=== PATIENT | male | born 1985 ===

== ENCOUNTER 2018-07-28 14:11 | Inpatient (IN) | payer MEDICAID ==
[~2018-07-28] VITALS: Ht 182.9 cm; Wt 65.1 kg
[2018-07-28] VITALS (12 sets, daily range): BP systolic 95–120; BP diastolic 53–85; BMI 19.0
--- NOTE | ~2018-07-28 | MORECARE ---
CASE MANAGEMENT DISCHARGE SUMMARY PATIENT: HANK ERICKSON UNIT: [id number] ADM DATE: 07/28/18 AGE: 32 : [birth year] SEX: M ROOM/BED: D.2133 AUTHOR: HARITHA ORTEGA PHYSICIAN: REFERRING PHYSICIAN: TATIANA NAM MD DATE OF SERVICE: 07/31/18 Discharge Plan Patient Name: HANK ERICKSON Facility: [facility]:[place] : 1985 Planned Disposition: Home Anticipated Discharge Date: 07/31/18 Discharge Date: 07/31/2018 Expected LOS: 3 Initial Reviewer: [email or web address] Initial Review Date: 07/28/2018 Generated: 07/31/18 9:05 pm Comments DCP- Discharge Planning Updated by [email or web address]: Tara Haji on 07/31/18 7:[address] PRIMARY NURSE REQUEST ASSISTANCE WITH TRANSPORTATION. PATIENT STATES HE IS GOING TO HOME AT [address] [place] [address], IN [place], [place]. HAS NO MONEY AND NO ONE HE CAN CALL TO PICK HIM UP. CANNOT RETURN TO PREVIOUS ADDRESS. TAXI APPROVED -QUOTED COST $230.00 [place] [employer]. Patient Name: HANK ERICKSON Page [id number] at 2005 All edits/amendments must be made on the electronic document DICTATION DATE: 07/31/182003 SUPERVISOR ASSEMBLING: KAVON 07/31/182003 RPT#: [id number] DC DATE:07/31/18 STATUS: DIS IN [address] [address] END OF REPORT
--- NOTE | ~2018-07-28 | MORECARE ---
CASE MANAGEMENT DISCHARGE SUMMARY PATIENT: HANK ERICKSON UNIT: [id number] ADM DATE: 07/28/18 AGE: 32 : 86 SEX: M ROOM/BED: D.2133 AUTHOR: HARITHA ORTEGA PHYSICIAN: REFERRING PHYSICIAN: TATIANA NAM MD DATE OF SERVICE: 08/02/18 Discharge Plan Patient Name: HANK ERICKSON [facility] [facility] 1985 Planned Disposition: Home Anticipated Discharge Date: 07/31/18 Discharge Date: 07/31/2018 Expected LOS: 3 Initial Reviewer: [email or web address] Initial Review Date: 07/28/2018 Generated: 08/02/18 1:19 pm Comments DCP- Discharge Planning Updated by [email or web address]: Tara Haji on 07/31/18 7:[address] PRIMARY NURSE REQUEST ASSISTANCE WITH TRANSPORTATION. PATIENT STATES HE IS GOING TO HOME AT [address] [place] [address], IN [place], [place]. HAS NO MONEY AND NO ONE HE CAN CALL TO PICK HIM UP. CANNOT RETURN TO PREVIOUS ADDRESS. TAXI APPROVED -QUOTED COST $230.00 [employer]. Last DP export: 07/31/18 7:05 Patient Name: HANK ERICKSON Page [id number] at 1219 All edits/amendments must be made on the electronic document DICTATION DATE: 08/02/18 1218 ACCOUNTANT CERTIFIED PUBLIC: KAVON 08/02/18 1218 RPT#: [id number] DC DATE:07/31/18 STATUS: DIS IN [facility] [address] [place] [address] END OF REPORT
--- NOTE | ~2018-07-28 | CN ---
PATIENT NAME:HANK ERICKSON MEDICAL RECORD: [id number] : 87 LOCATION:[facility] D.2133 ADMIT DATE: 07/28/18 ACCOUNT: [id number] CONSULTING PHYSICIAN: KACI VELEZ MD REFERRING PHYSICIAN: TATIANA NAM MD DATE OF CONSULTATION: 07/30/2018 PSYCHIATRIC CONSULTATION IDENTIFYING DATA: The patient is 32 years old and he is admitted to the hospital on a voluntary basis. CHIEF COMPLAINT: Aggression. HISTORY OF PRESENT ILLNESS: The patient is a known polysubstance abuser who is addicted to opiates. He was at a treatment program recently and is therefore the Suboxone prescription. While in counseling, he apparently became acutely aggressive and violent. He was brought to the Emergency Room here. He has continued to be aggressive, violent and was given both Versed and Haldol. He was briefly intubated because of his sedation. His urine drug screen was positive for opiates, amphetamines, benzodiazepines, and marijuana. MENTAL STATUS EXAMINATION: The patient is awake, alert, and oriented to person, place, time, and situation. His mood is euthymic. His affect appropriate. Thought processes are goal directed. Memory, concentration, and abstraction abilities are intact. He denies any active intent to harm himself or others as well as overt psychotic symptoms. ASSESSMENT: 1. Delirium, resolved. 2. Opiate dependence. 3. Polysubstance abuse. PLAN: At this time, the patient is not acutely dangerous and his sensorium is clear. He has no recollection of the events that occurred at the [facility] where he became so violent and had to be brought to the Emergency Room. Clearly, he was acutely intoxicated on numerous substances. He no longer is under the influence of these drugs. I do not consider him an acute risk to himself or others. I understand he is going to be hospitalized a little longer because of his pneumonia. I will start him on Suboxone and do not have an issue with him being moved from the intensive care unit to a less structured setting if it is appropriate medically. When he is discharged, he should follow up with the physician at the [facility] Suboxone program. TRANSINT:[id number] Voice Confirmation ID: [id number] DOCUMENT ID: [id number] KACI VELEZ MD at 1233 CC: [id number] DICTATION DATE: 07/30/18 1351 VICE PRESIDENT NETWORK: 07/30/18 1428 ADM IN [facility] [address] [place] [id number]
[2018-07-28 14:41] LABS: BASOPHILS 0.1 % (0-2); EOSINOPHILS 0.1 % (0-7); HEMATOCRIT 44.5 % (42.0-54.0); HEMOGLOBIN 15.5 g/dL (13.5-17.5); IMMATURE GRANULOCYTES 0.2 % (0-5); LYMPHOCYTES 7.3 % (15-50); MCH 30.2 pg (26.0-34.0); MCHC 34.8 g/dL (31.0-37.0); MCV 86.7 fL (80.0-100.0); MEAN PLATELET VOLUME 8.9 fL (7.4-10.4); MONOCYTES 5.6 % (2-11); NEUTROPHILS 86.7 % (40-80); PLATELET COUNT 269 10x3/uL (130-400); RBC 5.13 10x6/uL (4.20-6.10); RDW 12.7 % (11.5-14.5); WBC 13.8 10x3/uL (4.8-10.8)
[2018-07-28 14:49] LABS: APTT 23.7 SECONDS (22.8-39.4); INR 1.08 (0.85-1.17); PROTIME 13.5 SECONDS (11.6-15.0)
[2018-07-28 15:04] LABS: ALBUMIN 4.1 g/dL (3.4-5.0); ALKALINE PHOSPHATASE 93 U/L (46-116); ALT (SGPT) 34 U/L (10-68); BILIRUBIN - TOTAL 0.37 mg/dL (0.2-1.3); CALC OSMOLALITY 283 mosm/kg (275-300); CALCIUM 9.3 mg/dL (8.5-10.1); CARBON DIOXIDE 26.3 mmol/L (21.0-32.0); CHLORIDE - SERUM 99 mmol/L (98-107); CREATININE - SERUM 1.3 mg/dL (0.6-1.3); GLUCOSE 246 mg/dL (74-106); POTASSIUM - SERUM 3.7 mmol/L (3.5-5.1); PROTEIN - SERUM 7.6 g/dL (6.4-8.2); SODIUM 136 mmol/L (136-145); UREA NITROGEN 23 mg/dL (7-18); eGFR NON AFRICAN AMERICAN 68 mL/min (90-120)
[2018-07-28 15:09] LABS: CKMB 3.7 U/L (0.0-3.6); CREATINE KINASE 364 UL (21-232); MAGNESIUM - SERUM 1.7 mg/dL (1.8-2.4); THYROID STIMULATING HORMONE 2.45 uIU/mL (0.36-3.74); TROPONIN-I < 0.017 ng/mL (0.000-0.060)
[2018-07-28 15:16] LABS: APPEARANCE CLEAR (CLEAR); BILIRUBIN NEGATIVE (NEGATIVE); COLOR YELLOW (YELLOW); GLUCOSE NEGATIVE (NEGATIVE); KETONE NEGATIVE (NEGATIVE); NITRITE NEGATIVE (NEGATIVE); PROTEIN TRACE mg/dL (NEGATIVE); UDS - AMPHET POSITIVE QUAL (NEGATIVE); UDS - BARB NEGATIVE QUAL (NEGATIVE); UDS - BENZO POSITIVE QUAL (NEGATIVE); UDS - COCAINE NEGATIVE QUAL (NEGATIVE); UDS - OPIATE POSITIVE QUAL (NEGATIVE); UDS - PCP NEGATIVE QUAL (NEGATIVE); UDS - THC POSITIVE QUAL (NEGATIVE); UROBILINOGEN NORMAL (NORMAL)
[2018-07-28 17:30] LABS: CKMB 8.3 U/L (0.0-3.6)
[2018-07-28 17:32] LABS: CREATINE KINASE 809 UL (21-232); TROPONIN-I 0.017 ng/mL (0.000-0.060)
[2018-07-28 21:21] LABS: CREATINE KINASE 1325 UL (21-232); TROPONIN-I < 0.017 ng/mL (0.000-0.060)
[2018-07-29] VITALS (24 sets, daily range): BP systolic 97–133; BP diastolic 56–76; Ht 182.9 cm; Wt 65.1 kg
[2018-07-29 04:07] LABS: BASOPHILS 0.2 % (0-2); EOSINOPHILS 1.5 % (0-7); IMMATURE GRANULOCYTES 0.3 % (0-5); LYMPHOCYTES 17.4 % (15-50); MCH 29.2 pg (26.0-34.0); MCHC 32.4 g/dL (31.0-37.0); MEAN PLATELET VOLUME 9.1 fL (7.4-10.4); MONOCYTES 9.6 % (2-11); RDW 13.3 % (11.5-14.5); WBC 10.8 10x3/uL (4.8-10.8)
[2018-07-29 04:24] LABS: HEMATOCRIT 35.2 % (42.0-54.0); HEMOGLOBIN 11.4 g/dL (13.5-17.5); PLATELET COUNT 190 10x3/uL (130-400); RBC 3.91 10x6/uL (4.20-6.10)
[2018-07-29] MEDS ORDERED: BUPROPION HCL75 MG (04:49)
[2018-07-29] MEDS ORDERED: SUBOXONE 2 MG-01 TAB (04:49)
[2018-07-29 05:11] LABS: ALKALINE PHOSPHATASE 50 U/L (46-116); BILIRUBIN - TOTAL 0.33 mg/dL (0.2-1.3); CALCIUM 7.9 mg/dL (8.5-10.1); CARBON DIOXIDE 24.7 mmol/L (21.0-32.0); CHLORIDE - SERUM 103 mmol/L (98-107); CKMB 9.4 U/L (0.0-3.6); MAGNESIUM - SERUM 1.3 mg/dL (1.8-2.4); SODIUM 140 mmol/L (136-145); TROPONIN-I 0.033 ng/mL (0.000-0.060)
[2018-07-29 05:14] LABS: ALBUMIN 2.3 g/dL (3.4-5.0); ALT (SGPT) 24 U/L (10-68); CALC OSMOLALITY 274 mosm/kg (275-300); CREATINE KINASE 910 UL (21-232); CREATININE - SERUM 0.4 mg/dL (0.6-1.3); GLUCOSE 49 mg/dL (74-106); UREA NITROGEN 11 mg/dL (7-18); eGFR NON AFRICAN AMERICAN > 90 mL/min (90-120)
[2018-07-29 09:42] LABS: TROPONIN-I 0.018 ng/mL (0.000-0.060)
[2018-07-29 09:45] LABS: CKMB 21.1 U/L (0.0-3.6); CREATINE KINASE 1679 UL (21-232)
[2018-07-29 13:06] LABS: CKMB 21.2 U/L (0.0-3.6); CREATINE KINASE 2077 UL (21-232); TROPONIN-I < 0.017 ng/mL (0.000-0.060)
[2018-07-29 17:40] LABS: CKMB 18.1 U/L (0.0-3.6); CREATINE KINASE 2151 UL (21-232); TROPONIN-I < 0.017 ng/mL (0.000-0.060)
[2018-07-30] VITALS (14 sets, daily range): BP systolic 102–121; BP diastolic 48–69
[2018-07-30 00:46] LABS: CKMB 8.7 U/L (0.0-3.6)
[2018-07-30 00:47] LABS: CREATINE KINASE 1785 UL (21-232); TROPONIN-I < 0.017 ng/mL (0.000-0.060)
[2018-07-30 03:15] LABS: HEMATOCRIT 40.7 % (42.0-54.0); HEMOGLOBIN 13.5 g/dL (13.5-17.5); MCH 29.7 pg (26.0-34.0); MCHC 33.2 g/dL (31.0-37.0); MCV 89.5 fL (80.0-100.0); MEAN PLATELET VOLUME 9.1 fL (7.4-10.4); PLATELET COUNT 204 10x3/uL (130-400); RBC 4.55 10x6/uL (4.20-6.10); RDW 13.1 % (11.5-14.5); WBC 23.6 10x3/uL (4.8-10.8)
[2018-07-30 03:27] LABS: ALBUMIN 2.9 g/dL (3.4-5.0); ALKALINE PHOSPHATASE 79 U/L (46-116); ALT (SGPT) 35 U/L (10-68); BILIRUBIN - TOTAL 0.46 mg/dL (0.2-1.3); CALC OSMOLALITY 269 mosm/kg (275-300); CALCIUM 8.1 mg/dL (8.5-10.1); CARBON DIOXIDE 26.1 mmol/L (21.0-32.0); CHLORIDE - SERUM 101 mmol/L (98-107); CREATININE - SERUM 0.6 mg/dL (0.6-1.3); GLUCOSE 79 mg/dL (74-106); MAGNESIUM - SERUM 2.1 mg/dL (1.8-2.4); POTASSIUM - SERUM 4.5 mmol/L (3.5-5.1); SODIUM 136 mmol/L (136-145); UREA NITROGEN 11 mg/dL (7-18); eGFR NON AFRICAN AMERICAN > 90 mL/min (90-120)
[2018-07-30 03:59] LABS: EOSINOPHILS 1 % (0-7); LYMPHOCYTES 5 % (15-50); MONOCYTES 3 % (2-11); NEUTROPHILS 91 % (40-80); PLATELET ESTIMATE NORMAL
[2018-07-31] VITALS: BP 117/61
[2018-07-31 04:00] VITALS: BP 106/45
[2018-07-31 05:39] LABS: BASOPHILS 0.1 % (0-2); EOSINOPHILS 0.3 % (0-7); HEMATOCRIT 36.9 % (42.0-54.0); HEMOGLOBIN 12.5 g/dL (13.5-17.5); IMMATURE GRANULOCYTES 0.4 % (0-5); LYMPHOCYTES 4.8 % (15-50); MCH 29.9 pg (26.0-34.0); MCHC 33.9 g/dL (31.0-37.0); MCV 88.3 fL (80.0-100.0); MEAN PLATELET VOLUME 9.3 fL (7.4-10.4); MONOCYTES 6.3 % (2-11); NEUTROPHILS 88.1 % (40-80); PLATELET COUNT 217 10x3/uL (130-400); RBC 4.18 10x6/uL (4.20-6.10); RDW 12.7 % (11.5-14.5); WBC 19.6 10x3/uL (4.8-10.8)
[2018-07-31 06:09] LABS: ALBUMIN 2.7 g/dL (3.4-5.0); ALKALINE PHOSPHATASE 92 U/L (46-116); ALT (SGPT) 39 U/L (10-68); BILIRUBIN - TOTAL 0.46 mg/dL (0.2-1.3); CALCIUM 8.5 mg/dL (8.5-10.1); CARBON DIOXIDE 25.2 mmol/L (21.0-32.0); CHLORIDE - SERUM 102 mmol/L (98-107); CREATININE - SERUM 0.7 mg/dL (0.6-1.3); MAGNESIUM - SERUM 1.9 mg/dL (1.8-2.4); POTASSIUM - SERUM 3.9 mmol/L (3.5-5.1); PROTEIN - SERUM 6.3 g/dL (6.4-8.2); SODIUM 136 mmol/L (136-145); UREA NITROGEN 9 mg/dL (7-18); eGFR NON AFRICAN AMERICAN > 90 mL/min (90-120)
[2018-07-31 06:16] LABS: CALC OSMOLALITY 272 mosm/kg (275-300); GLUCOSE 129 mg/dL (74-106)
[2018-07-31 09:02] VITALS: BP 114/70
[2018-07-31 13:32] VITALS: BP 112/62
[2018-07-31] MEDS ORDERED: LEVOFLOXACIN500 MG PO (15:29)
[2018-07-31 16:49] VITALS: BP 140/75
== END 2018-07-31 18:41 | disposition home or self-care (01) | DRG 917 ==
LOC: D.ER 14:11 → D.EDHOLD 15:29 → D.ICU 15:29 → D.M2 07-30 21:32
PROVIDERS: Family Medicine; Family Medicine Adult Medicine
PROC: 0BH17EZ Insertion of Endotracheal Airway into Trachea, Via Natural or Artificial Opening (ICD-10-PCS; principal; 2018-07-28)
PROC: 5A1935Z Respiratory Ventilation, Less than 24 Consecutive Hours (ICD-10-PCS; 2018-07-28)
DX: T40.601A Poisoning by unspecified narcotics, accidental (unintentional), initial encounter (principal); J69.0 Pneumonitis due to inhalation of food and vomit; F11.921 Opioid use, unspecified with intoxication delirium; M62.82 Rhabdomyolysis; T43.621A Poisoning by amphetamines, accidental (unintentional), initial encounter; T42.4X1A Poisoning by benzodiazepines, accidental (unintentional), initial encounter; T40.7X1A Poisoning by cannabis (derivatives), accidental (unintentional), initial encounter; R00.0 Tachycardia, unspecified